=== PATIENT | female | born 1990 | race Caucasian/White ===

== ENCOUNTER 2017-09-23 10:47 | Emergency (ER) | payer OTHER ==
[~2017-09-23] VITALS: Ht 152.4 cm; Wt 109.1 kg
[2017-09-23] MEDS ORDERED: CefTRIAXone SODIUM 1 GM/VIAL IM ONE (15:00)
[2017-09-23] MEDS ORDERED: LIDOCAINE HCL/PF 1% 2 ML VIAL IM ONE (15:00)
[2017-09-23] MEDS ORDERED: IBUPROFEN 800 MG TABLET PO ONE (15:00)
[2017-09-23 16:31] VITALS: BP 115/72
== END 2017-09-23 16:44 | disposition home or self-care (01) ==
LOC: EMS 10:49
DX: L03.313 Cellulitis of chest wall (principal); E03.9 Hypothyroidism, unspecified; F17.210 Nicotine dependence, cigarettes, uncomplicated
CPT/HCPCS: 96372; 99283; J0696; J3490

== ENCOUNTER 2021-01-21 11:54 | Day surgery (SDC) | payer OTHER ==
[~2021-01-21] VITALS: Ht 149.9 cm; Wt 134.5 kg
[~2021-01-21 11:54] MED LIST: FentaNYL CITRATE PF 100 MCG/2 ML VIAL IVP PRN; HYDROmorphone 2 MG/ML VIAL IVP PRN; MEPERIDINE-PF 25 MG/ML VIAL IVP PRN; RINGERS SOLUTION,LACTATED 1,000 ML IV ONE
[2021-01-21] MEDS ORDERED: MIDAZOLAM HCL 2 MG/2 ML VIAL IVP ONE (12:00)
[2021-01-21] MEDS ORDERED: FentaNYL CITRATE PF 100 MCG/2 ML VIAL IVP ONE (12:00)
[2021-01-21] MEDS ORDERED: ONDANSETRON HCL 4 MG/2 ML VIAL IVP ONE (12:00)
[2021-01-21] MEDS ORDERED: PROPOFOL 1% 20 ML VIAL IVP ONE (12:00)
[2021-01-21] MEDS ORDERED: SUCCINYLCHOLINE CHLORIDE 20 MG/ML 10 ML VIAL IVP ONE (12:00)
[2021-01-21] MEDS ORDERED: DEXAMETHASONE SOD PHOS 4 MG/ML VIAL IVP ONE (12:00)
== END 2021-01-21 13:00 | disposition home or self-care (01) ==
LOC: SURGERY 11:54
PROVIDERS: ATTEND Obstetrics & Gynecology
DX: T83.32XA Displacement of intrauterine contraceptive device, initial encounter (principal); J45.909 Unspecified asthma, uncomplicated; Y83.8 Other surgical procedures as the cause of abnormal reaction of the patient, or of later complication, without mention of misadventure at the time of the procedure; E66.01 Morbid (severe) obesity due to excess calories; Z98.84 Bariatric surgery status
CPT/HCPCS: 36415; 58562; 86850; 86900; 86901; 88300; J0330; J1100; J2250; J2405; J2704; J3010; J7120